=== PATIENT | female | born 1955 | race Caucasian/White ===

== ENCOUNTER → 2018-05-07 | Outpatient (CLI) | payer BC | LOC: FIMAGING 14:02 | PROVIDERS: ATTEND Nurse Practitioner Adult Health | DX: Z12.31 Encounter for screening mammogram for malignant neoplasm of breast (principal); Z13.820 Encounter for screening for osteoporosis; M85.89 Other specified disorders of bone density and structure, multiple sites; E28.39 Other primary ovarian failure; Z78.0 Asymptomatic menopausal state; Z80.3 Family history of malignant neoplasm of breast ==